=== PATIENT | male | born 1950 | race Caucasian/White ===

== ENCOUNTER → 2017-05-28 | Outpatient (CLI) | payer MEDICARE, BC ==
[~2017-05-28] MED LIST: ACET-1966 PO; ASPI-715 PO; CIPR-214 PO; DEXA2TAB7 PO; ESC10 PO; ESCI5TAB10 PO; FEN75T TD; FENT-23 TD; FINA5TAB64 PO; FISH OIL; FOL1 PO; HYDR-3378 PO; HYDR2TAB74 PO; LEVO750T44 PO; LEXAPRO; LORA-1221 PO; MULT1CAP41 PO; OMEG-95 PO; OMEP-218 PO; OND4 PO; PHEN200T32 PO; PRILOSEC; PRO5 PO; PROM12.546 PO; TAMS0.4C25 PO; VIT B; VITAMIN MULTI; magic mouthwash PO
--- NOTE | 2017-05-28 14:53 | RADIOLOGY IMAGING REPORT ---
FACILITY: [facility] PATIENT NAME: Octaviano Carlos : 1950 MR: [id number] V: [id number] EXAM DATE: ORDERING PHYSICIAN: SILVESTRE MYRICK TECHNOLOGIST: Location: Patient: Octaviano Carlos : 1950 Visit/Account:[id number] Date of Sevice: 05/28/2017 CAROTID HISTORY: Bilateral carotid bruits COMPARISON: None. FINDINGS: Grayscale, duplex and color Doppler interrogation of the extracranial carotid and vertebral arteries was performed bilateral. On the right, peak systolic velocities within the common and internal carotid arteries are 126 and 17 4 cm/sec respectively. There is a small to moderate amount of plaque identified in the mid right com mon carotid artery and a moderate to large amount of soft plaque identified in the distal right commo n carotid artery. There is a 65% cross-sectional narrowing in the distal right common carotid artery and a 50% cross-sectional narrowing in the mid right common carotid artery. A small hard plaques ar e identified in the mid and distal right common carotid artery Antegrade flow within the common, int ernal and external carotid arteries as well as vertebral artery. ICA/CCA ratio 2.14. On the left, peak systolic velocities within the common and internal carotid arteries are 139 and 120 cm/sec respectively. There is at least a moderate amount of soft plaque identified in the mid left common carotid artery producing a 62.5% cross-sectional narrowing.. Small hard plaques are identified throughout the left common carotid artery.. Antegrade flow within the common, internal and external carotid arteries as well as vertebral artery. ICA/CCA ratio 1.33. IMPRESSION: There is a small to moderate amount of soft plaque identified in the mid right common carotid artery producing 50% cross-sectional narrowing and a moderate to large amount of soft plaque in the distal r ight common carotid artery producing a 65% cross-sectional narrowing. Elevated peak systolic velocity in the right internal carotid artery is consistent with a 50-69% cat egory stenosis and appears to be secondary to hard plaque. There is at least a moderate amount of soft plaque in the mid left common carotid artery producing a 62.5% cross-sectional narrowing. Smaller plaques identified throughout the left common carotid artery. The peak systolic velocity in the left internal carotid arteries 120 cm/s which is equal to a less than 50% stenosis Velocity criteria are extrapolated from diameter data as defined by the Society of Radiologists in [place] Consensus Conference Radiology 2003; 229;340-346 Report Dictated By: Radha Holt MD at 05/28/2017 2:43 PM Report E-Signed By: Radha Holt MD at 05/28/2017 2:48 PM WSN:[email or web address]
== END ==
LOC: US 07:09
PROVIDERS: ATTEND Family Medicine
DX: I65.23 Occlusion and stenosis of bilateral carotid arteries (principal)
CPT/HCPCS: 93880

== ENCOUNTER → 2017-10-27 | Outpatient (CLI) | payer MEDICARE, BC ==
[2017-10-27 09:12] LABS: LDL CHOLESTEROL 98 mg/dl
== END ==
LOC: LAB 08:28
PROVIDERS: ATTEND Family Medicine
DX: R73.01 Impaired fasting glucose (principal); E78.5 Hyperlipidemia, unspecified; C61 Malignant neoplasm of prostate; D72.9 Disorder of white blood cells, unspecified
CPT/HCPCS: 36415; 82040; 82247; 82310; 82374; 82435; 82465; 82565; 82947; 83036; 83718; 84075; 84132; 84155; 84295; 84450; 84460; 84478; 84520; 85027

== ENCOUNTER → 2018-05-27 | Outpatient (CLI) | payer MEDICARE, BC ==
[2018-05-27 08:58] LABS: LDL CHOLESTEROL 150 mg/dl
== END ==
LOC: LAB 08:29
PROVIDERS: ATTEND Family Medicine
DX: R73.01 Impaired fasting glucose (principal); E78.5 Hyperlipidemia, unspecified; D72.829 Elevated white blood cell count, unspecified; C61 Malignant neoplasm of prostate
CPT/HCPCS: 36415; 83036; 84443; 85027; G0103; 82040; 82247; 82310; 82374; 82435; 82465; 82565; 82947; 83718; 84075; 84132; 84153; 84155; 84295; 84450; 84460; 84478; 84520

== ENCOUNTER → 2018-06-01 | Outpatient (CLI) | payer MEDICARE, BC ==
--- NOTE | 2018-06-01 15:11 | RADIOLOGY IMAGING REPORT ---
FACILITY: [facility] [place] PATIENT NAME: Octaviano Carlos : 1950 MR: [id number] V: [id number] EXAM DATE: ORDERING PHYSICIAN: SILVESTRE MYRICK TECHNOLOGIST: [place] [facility] [place] Octaviano [place] : 1950 Visit/Account:[id number] Date of Sevice: 06/01/2018 CAROTID HISTORY: Carotid stenosis COMPARISON: May 28, 2017 FINDINGS: Grayscale, duplex and color Doppler interrogation of the extracranial carotid and vertebral arteries was performed bilateral. On the right, peak systolic velocities within the common and internal carotid arteries are 132 and 11 4 cm/sec respectively. The peak systolic velocity of the right carotid bulb is 196 cm/s is a moderat e amount of plaque identified the right carotid bulb extending into the proximal right internal carot id artery. Smooth soft plaque is identified in the distal right common carotid artery proximal to th e bulb. Antegrade flow within the common, internal and external carotid arteries as well as vertebra l artery. ICA/CCA ratio 1.6. On the left, peak systolic velocities within the common and internal carotid arteries are 125 and 82 cm/sec respectively. There is a moderate amount of plaque in the distal left common carotid artery e xtending to the left carotid bulb. There is intimal thickening in the left common carotid artery as well. Antegrade flow within the common, internal and external carotid arteries as well as vertebral artery. ICA/CCA ratio 0.7. IMPRESSION: There is a moderate amount of plaque in the right carotid bulb extending the proximal right internal carotid artery although velocity criteria suggests less than 50% stenosis in the right ICA. Elevated peak systolic velocity at the right carotid bulb is consistent with a 50-69% category stenosis There is a moderate amount of plaque in the distal left common carotid artery extending to the left c arotid bulb producing less than 50% area stenosis in the left ICA and a 50-69% area stenosis in the d istal left common carotid artery Velocity criteria are extrapolated from diameter data as defined by the Society of Radiologists in [place]ound Consensus Conference Radiology 2003; 229;340-346 Report Dictated By: Radha Holt MD at 06/01/2018 3:00 PM Report E-Signed By: Radha Holt MD at 06/01/2018 3:07 PM WSN:[email or web address]
== END ==
LOC: US 07:30
PROVIDERS: ATTEND Family Medicine
DX: I65.22 Occlusion and stenosis of left carotid artery (principal)
CPT/HCPCS: 93880

== ENCOUNTER → 2018-09-07 | Outpatient (CLI) | payer MEDICARE, BC | LOC: LAB 07:39 | PROVIDERS: ATTEND Internal Medicine Cardiovascular Disease | DX: I65.23 Occlusion and stenosis of bilateral carotid arteries (principal); E78.00 Pure hypercholesterolemia, unspecified | CPT/HCPCS: 36415; 82465; 83718; 84478 ==